=== PATIENT | male | born 1995 | race Caucasian/White ===

== ENCOUNTER 2019-08-12 15:06 | Emergency (ER) | payer OTHER ==
[~2019-08-12] VITALS: Ht 180.3 cm; Wt 88.5 kg
== END 2019-08-12 18:49 | disposition home or self-care (01) ==
LOC: ED 15:06
DX: S60.221A Contusion of right hand, initial encounter (principal); S30.1XXA Contusion of abdominal wall, initial encounter; S30.0XXA Contusion of lower back and pelvis, initial encounter; Y04.2XXA Assault by strike against or bumped into by another person, initial encounter
CPT/HCPCS: 70450; 73130; 74177; 80053; 81001; 83690; 85025; 99284-25; Q9967